=== PATIENT | male | born 1995 | race Caucasian/White ===

== ENCOUNTER 2016-11-05 03:14 | Emergency (ER) | payer OTHER ==
[~2016-11-05] VITALS: Ht 182.9 cm; Wt 78.5 kg
[2016-11-05 03:20] VITALS: Ht 182.9 cm; Wt 78.5 kg
--- NOTE | 2016-11-05 04:34 | RADRPT ---
PROCEDURE: XR Chest. CLINICAL INDICATION: Chest pain. TECHNIQUE: AP Portable chest. COMPARISON: No pertinent prior examinations were submitted for comparison. FINDINGS: The cardiomediastinal silhouette is normal. The aorta is normal. No focal consolidation, pleural eff usion or pneumothorax is seen. The osseous structures are intact. IMPRESSION: No radiographic evidence of acute cardiopulmonary disease. Physician Catrachita Date Time Electronically viewed and signed by Physician Catrachita on 11/05/2016 04:34 ARNEL/
--- NOTE | 2016-11-05 04:35 | ERD ---
ER Documentation Chief Complaint Date/Time DATE: 11/05/16 TIME: 04:33 Chief Complaint chest pain x 3 days, numbness on left arm x 3 days, tingling sensattion on HPI 21-year-old male presents here to emergency department for complaints of on and off left-sided chest pain for 1 week, worse in the last 3 days. Patient is on an upper left arm numbness also over the last 3 days. Patient does admit to be lifting heavy boxes 1 week ago, has had the pain ever since, patient also admits to be having stress lately. Patient describes the pain as sharp pain, 4/ 10 scale, intermittent pain, accompanied with numbness at times. Patient denies any dyspnea on exertion or dyspnea on lying down. Patient denies any cough. ROS All systems reviewed and are negative except as per history of present illness. Medications Home Meds Reported Medications [none] Unknown Strength No Conflict Check 11/05/16 Allergies Allergies: Coded Allergies: No Known Allergy (Unverified , 11/05/16) PMhx/Soc Medical and Surgical Hx: pt denies Medical Hx History of Surgery: Yes (undescended testicle) Anesthesia Reaction: No Hx Neurological Disorder: No Hx Respiratory Disorders: No Hx Cardiac Disorders: No Hx Psychiatric Problems: No Hx Miscellaneous Medical Probl: No Hx Alcohol Use: No Hx Substance Use: No Hx Tobacco Use: No Smoking Status: Never smoker FmHx Family History: No coronary disease, No diabetes, No other Physical Exam Vitals Vital Signs Date Time Temp Pulse Resp B/P Pulse Ox O2 Delivery O2 Flow Rate FiO2 11/05/16 03:20 97.2 80 20 125/80 99 Physical Exam GENERAL: The patient is well developed and appropriate for usual state of health, in no apparent distress. CHEST: Clear to auscultation bilaterally. There are no rales, wheezes or rhonchi. HEART: Regular rate and rhythm. No murmurs, clicks, rubs or gallops. No S3 or S4. ABDOMEN: Soft, nontender and nondistended. Good bowel sounds. No rebound or guarding. No gross peritonitis. No gross organomegaly or masses. No Arango sign or McBurney point tenderness. BACK: No midline or flank tenderness. EXTREMITIES: Equal pulses bilaterally. There is no peripheral clubbing, cyanosis or edema. No focal swelling or erythema. Full range of motion. Grossly neurovascularly intact. NEURO: Alert and oriented. Cranial nerves 2-12 intact. Motor strength in all 4 extremities with 5/5 strength. Sensation grossly intact. Normal speech and gait. SKIN: There is no apparent rash or petechia. The skin is warm and dry. HEMATOLOGIC AND LYMPHATIC: There is no evidence of excessive bruising or lymphedema. No gross cervical, axillary, or inguinal lymphadenopathy. Results 24 hrs EKG was done, read by me and is normal sinus rhythm at a rate of 71_, normal axis, there is no ST changes or changes in the EKG that indicates any cardiac emergencies at this time. Patient's EKG was also reviewed by . Impression: no acute findings on EKG PROCEDURE: XR Chest. CLINICAL INDICATION: Chest pain. TECHNIQUE: AP Portable chest. COMPARISON: No pertinent prior examinations were submitted for comparison. FINDINGS: The cardiomediastinal silhouette is normal. The aorta is normal. No focal consolidation, pleural effusion or pneumothorax is seen. The osseous structures are intact. IMPRESSION: No radiographic evidence of acute cardiopulmonary disease. Physician Catrachita Date Time Electronically viewed and signed by Physician Catrachita on 11/05/2016 04: 34 CS/ CC: KINGSLEY WRIGHT [employer] Procedures/MDM Medical Decision Making: Patient symptoms most likely is consistent with anxiety , can be also from musculoskeletal pain. There is low suspicion for cardiopulmonary emergencies at this time. Patient has low risk factors. EKG is normal, there is no changes in the EKG that indicates cardiac emergencies. Chest X-ray does not show cardiopulmonary emergencies at this time. There is low suspicion for aortic aneurysm, myocardial infarction, pneumothorax, pleural effusion, pulmonary embolism, or any other cardiopulmonary emergencies at this time. Prescription was given for ibuprofen, tramadol for severe pain, was advised to rest, avoid stressors, avoid heavy lifting, was advised to follow-up with primary care doctor in 2-3 days for reevaluation of symptoms. Patient was advised to return to emergency department for any worsening symptoms. Dispostion: Home. Stable Disclaimer: Inadvertent spelling and grammatical errors are likely due to EHR/ dictation software use and do not reflect on the overall quality of patient care. Also, please note that the electronic time recorded on this note does not necessarily reflect the actual time of the patient encounter. Departure Diagnosis: Primary Impression: Atypical chest pain Condition: Stable Patient Instructions: Chest Pain, Uncertain Cause Additional Instructions: Prescription was given for ibuprofen, tramadol for severe pain, was advised to rest, avoid stressors, avoid heavy lifting, was advised to follow-up with primary care doctor in 2-3 days for reevaluation of symptoms. Patient was advised to return to emergency department for any worsening symptoms. KINGSLEY WRIGHT NP Nov 05, 2016 04:35
[2016-11-05] MEDS ORDERED: IBUP-1542 PO (04:56)
[2016-11-05] MEDS ORDERED: TRAM50TA2 PO (04:56)
== END 2016-11-05 05:02 | disposition home or self-care (01) ==
LOC: FTE 03:14
DX: R07.89 Other chest pain (principal)
CPT/HCPCS: 71010; 93005

== ENCOUNTER 2017-07-26 10:24 | Day surgery (SDC) | END 2017-07-26 16:38 | disposition home or self-care (01) ==